=== PATIENT | female | born 1990 | race Caucasian/White ===

== ENCOUNTER 2023-07-01 09:53 | Outpatient (OUT) | payer SELFPAY ==
[2023-07-01 11:05] LABS: Basophils Percent Auto 0.3 % (0.2-2.0); Eosinophils Absolute Auto 0.1 10^3/uL (0.0-0.7); Eosinophils Percent Auto 0.9 % (0.9-7.0); Hematocrit 38.2 % (36.0-48.0); Hemoglobin 13.5 g/dL (12.0-16.0); Immature Granulocytes Abs Auto 0.02 10^3/uL (0.00-0.03); Immature Granulocytes Pct Auto 0.3 % (0.0-0.5); Lymphocytes Absolute Auto 2.1 10^3/uL (1.2-3.8); Lymphocytes Percent Auto 31.4 % (20.5-60.0); Mean Corpuscular HGB Conc 35.3 g/dL (29.9-35.2); Mean Corpuscular Hemoglobin 31.2 pg (26.7-34.0); Mean Corpuscular Volume 88.2 fL (81.0-99.0); Mean Platelet Volume 11.1 fL (9.5-13.5); Monocytes Absolute Auto 0.5 10^3/uL (0.3-0.8); Monocytes Percent Auto 8.3 % (1.7-12.0); Neutrophils Absolute Auto 3.8 10^3/uL (1.4-6.5); Neutrophils Percent Auto 58.8 % (43.0-75.0); Platelet Count 257 10^3/uL (150-450); Red Blood Count 4.33 10^6/uL (4.20-5.40); Red Cell Distribution Width 12.4 % (11.0-15.0); White Blood Count 6.5 10^3/uL (4.0-11.0)
[2023-07-01 11:58] LABS: HCG Quantitative 6771 mIU/mL
[2023-07-02 07:07] LABS: Progesterone 18.1 ng/mL (.); RPR Non Reactive (Non Reactive)
[2023-07-02 08:08] LABS: Hep B Surface Ab Reactive (.); Rubella Antibodies, IgG 1.72 index (Immune >0.99)
[2023-07-02 09:08] LABS: HIV Ab/p24 Ag Screen Non Reactive (Non Reactive)
== END 2023-07-01 09:54 | disposition home or self-care (01) ==
DX: Z32.01 Encounter for pregnancy test, result positive (principal)
CPT/HCPCS: 36415; 84144; 84702; 85025; 86592; 86706; 86762; 86850; 86900; 86901; 87086; 87389

== ENCOUNTER 2024-04-01 12:06 | Emergency (ER) | payer OTHER, SELFPAY ==
[2024-04-01 12:28] VITALS: BP 164/96; PULSE 62; TEMP 36.7; O2SAT 99; BMI 29.1
== END 2024-04-01 13:14 | disposition left against medical advice (07) ==
LOC: ER 13:08
PROVIDERS: Emergency Provider Emergency Medicine
DX: Z53.21 Procedure and treatment not carried out due to patient leaving prior to being seen by health care provider (principal)

== ENCOUNTER 2025-01-10 09:29 | Emergency (ER) | payer OTHER, SELFPAY ==
[2025-01-10 09:35] VITALS: BP 150/81; PULSE 88; TEMP 36.7; O2SAT 99; BMI 23.0
[2025-01-10] MEDS: ONDANSETRON 4 MG RAPDIS TABLET SL (09:58)
[2025-01-10 10:10] LABS: Influenza Virus A Antigen Negative; Influenza Virus B Antigen Negative; Internal Control Within Normal Limits
[2025-01-10 10:11] LABS: Internal Control Within Normal Limits; SARS-CoV-2 Ag NEGATIVE (NEGATIVE)
--- NOTE | 2025-01-10 10:24 | ED_ITS ---
HPI - Nausea/Vomiting/Diarrhea General Chief complaint: Nausea/Vomiting/Diarrhea Stated complaint: FLU LIKE SYMPTOMS Time Seen by Provider: 01/10/25 09:45 Source: patient Mode of arrival: walk-in Limitations: no limitations History of Present Illness HPI Narrative: Patient is coming to the ER with a 48 hours history of nausea vomiting and diarrhea, she has no concern that she could be as she have her tubes tied, the patient also denies any fever or chills, she works in the skilled nursing and she is concerned that she is exposed to some viral illness from her patient's, the patient denies any other complaint Related Data Home Medications ?Medication ?Instructions ?Recorded ?Confirmed alprazolam 0.5 mg tablet mg 01/10/25 gabapentin 100 mg capsule mg 01/10/25 gabapentin 300 mg capsule mg 01/10/25 Previous Rx's ?Medication ?Instructions ?Recorded ondansetron 4 mg disintegrating 4 mg PO Q8H PRN nausea and 01/10/25 tablet vomiting 48 hours #10 tabs Allergies Allergy/AdvReac Type Severity Reaction Status Date / Time No Known Drug Allergies Allergy Verified 01/10/25 09:33 Review of Systems ROS Status of ROS 10 or more systems reviewed and unremark able except as noted in history and below PFSH PFSH Social History Little interest or pleasure in doing things: not at all Feeling down, depressed, or hopeless: not at all Exam Narrative Exam Narrative: Nurses notes and vital signs reviewed and patient is not hypoxic. General: Well-appearing and in no apparent distress. Skin: Warm, dry, no pallor noted. No rash. Head: Normocephalic, atraumatic. Neck: Supple, non-tender. Cardiovascular: Regular Rate and Rhythm without murmur, gallop or rub. Respiratory: No accessory muscle use or respiratory distress. Back: No midline thoracic or lumbar vertebral tenderness. No CVA tenderness Musculoskeletal: normal ROM, no calf or popliteal tenderness, no lower extremity edema/swelling GI: Abdomen is soft, non-distended. Normal bowel sounds. No masses appreciated. No tenderness to palpation. No rebound, guarding, or rigidity noted. Neurological: A&O x4. No cranial nerve dysfunction observed. Constitutional Vital Signs, click to edit/add: Last Vital Signs Temp 98.1 F 01/10/25 09:35 Pulse 88 01/10/25 09:35 Resp 18 01/10/25 09:35 BP 150/81 H 01/10/25 09:35 Pulse Ox 99 01/10/25 09:35 O2 Del Method Room Air 01/10/25 09:35 Course Vital Signs Vital signs: Vital Signs Temperature 98.1 F 01/10/25 09:35 Pulse Rate 88 01/10/25 09:35 Respiratory Rate 18 01/10/25 09:35 Blood Pressure 150/81 H 01/10/25 09:35 Pulse Oximetry 99 01/10/25 09:35 Oxygen Delivery Method Room Air 01/10/25 09:35 Temperature 98.1 F 01/10/25 09:35 Pulse Rate 88 01/10/25 09:35 Respiratory Rate 18 01/10/25 09:35 Blood Pressure 150/81 H 01/10/25 09:35 Pulse Oximetry 99 01/10/25 09:35 Oxygen Delivery Method Room Air 01/10/25 09:35 MDM - Nausea/Vomiting/Diarrhea MDM Narrative Medical decision making narrative: COVID and flu test are negative Patient treated supportively with Zofran Discharged home to continue supportive care for possible viral gastroenteritis Patient given a work excuse for the next 2 days The patient is to follow up with primary care physician in next 2-3 days or to return to the emergency department should any of the signs or symptoms worsen or new symptoms develop. The patient agrees with the following Diagnosis and Treatment plan and the patient will be discharged home. Lab Data Labs: Lab Results 01/10/25 Range/Units 09:35 Influenza Type A Ag Negative Influenza Type B Ag Negative SARS-CoV-2 Ag (CV2AG) Negative (NEGATIVE) Discharge Plan Discharge Chief Complaint: Nausea/Vomiting/Diarrhea Clinical Impression: Gastroenteritis Patient Disposition: Home, Self-Care Time of Disposition Decision: 10:25 Condition: Good Prescriptions / Home Meds: New ondansetron 4 mg tablet,disintegrating 4 mg PO Q8H PRN (Reason: nausea and vomiting) 2 Days Qty: 10 0RF No Action alprazolam 0.5 mg tablet gabapentin 300 mg capsule gabapentin 100 mg capsule Print Language: [place] Instructions: Gastroenteritis (DC) Referrals: [facility] [Primary Care Provider] - 1 week Discharge Date/Time: 01/10/25 10:33
== END 2025-01-10 10:33 | disposition home or self-care (01) ==
PROVIDERS: Emergency Provider Emergency Medicine
DX: K52.9 Noninfective gastroenteritis and colitis, unspecified (principal)
CPT/HCPCS: 87804; 87811; 99283; Q0162